=== PATIENT | female | born 1975 ===

== ENCOUNTER 2021-04-08 14:47 | Inpatient (IN) | payer OTHER ==
[~2021-04-08] VITALS: Ht 167.6 cm; Wt 72.1 kg
[2021-04-08] MEDS ORDERED: PROZAC20 MG (15:19)
--- NOTE | 2021-04-08 15:19 | NUR ---
SE RECIBE PACIENTE FEMENINA DE 46 ANOS DE EDAD DESPIERTA Y ALERTA POR SERVICIOS DE AMBULANCIA CON QUEJA PRINCIPAL DE DESMAYO EN EL RAVINDER DE [place]. REFIERE GLORIA ESTANDO CON SANGRADO VAGINAL POR UN TIEMPO Y QUE PADECE DE ANSIEDAD. SE QUINTIN SIGNOS VITALES Y SE UBICA EN SY
--- NOTE | 2021-04-08 15:52 | NUR ---
A EVALUA PTE, SE ORIENTA A PTE SOBRE ORDENES MEDICAS Y TRATAMIENTO. SE EXTRAEN MUESTRAS, SE CANALIZA PTE Y SE ADMINISTRAN MEDICAMENTOS BAJO MEDIDAS ASEPTICAS POR WILBERT. SE LE ENTREGA A PTE U/A PARA COLECCION. SE COORDINA ESONO DE PTE.
--- NOTE | 2021-04-08 19:30 | NUR ---
SE LE NOTIFICA A LICENCIADA BAUZO SOBRE TUBOS YA EN LABORATORIO PARA QUE KHLOE RECOGIDOS POR EL PERSONAL DE [facility] DE [facility] DE [facility]. LA MISMA REFIERE ENVIAR BEN.
--- NOTE | 2021-04-09 | NUR ---
SE RECIBE PACIENTE EN CAMA CON MEDIDAS DE SEGURIDAD, LUCE ALERTA CONSCIENTE Y ORIENTADA X3. POPPY DE DOLOR AL MOMENTO. BUEN PATRON RESPIRATORIO. 2 VENOPUNCIONES EN BRAZO ASHLEY PATENTES. PTE PENDIENTE A TRANSFUNDIR. PERMISO DE TRANSFUSION FIRMADO. PTE CONSULTADA CON GINECOLOGIA.
--- NOTE | 2021-04-09 02:58 | NUR ---
145AM-SE COMIENZA A PTE PRIMERA UNIDAD DE PRBC,LA CUAL PTE TOLERA,SE ORIENTA SOBRE NOTIFICAR CAMBIOS.LO CUAL PTE NO PRESENTA AL MOMENTO PTE EN OBSERVACIOIN POR CAMBIOS.
== END 2021-04-10 14:18 | disposition home or self-care (01) | DRG 812 ==
LOC: ER 14:47 → SEC-K 04-09 09:40 → SURG-SUITE 04-09 09:40
PROVIDERS: ADMIT Obstetrics & Gynecology; ATTEND Obstetrics & Gynecology
PROC: 30233N1 Transfusion of Nonautologous Red Blood Cells into Peripheral Vein, Percutaneous Approach (ICD-10-PCS; principal; 2021-04-09)
PROC: BU4CZZZ Ultrasonography of Uterus and Ovaries (ICD-10-PCS; 2021-04-09)
PROC: BW3GY0Z Magnetic Resonance Imaging (MRI) of Pelvic Region using Other Contrast, Unenhanced and Enhanced (ICD-10-PCS; 2021-04-09)
DX: D50.0 Iron deficiency anemia secondary to blood loss (chronic) (principal); N93.8 Other specified abnormal uterine and vaginal bleeding
CPT/HCPCS: 72197